=== PATIENT | female | born 1990 | race Caucasian/White ===

== ENCOUNTER 2016-06-03 08:59 | Emergency (ER) | payer BC ==
--- NOTE | 2016-06-03 09:18 | UC ---
Skin Complaint HPI - HPI Summary HPI Summary: PT HAD A TATOO DONE ON HER RIGHT UPPER ARM ON 05/30/16. YESTERDAY INCREASED REDNESS, WARMTH AND SWELLING OF SURROUNDING TISSUE. DENIES FEVER. PT HAD BEEN USING A&D OINT TO TATOO. has been using aquaphor. no fevers or chills or streaks. no d/c. wanted to catch it early and thinks that she has. - History of Current Complaint Chief Complaint: UCSkin Time Seen by Provider: 06/03/16 09:01 Stated Complaint: ARM COMPLAINT Hx Last Menstrual Period: 05/16/16 - Allergy/Home Medications Allergies/Adverse Reactions: Allergies Allergy/AdvReac Type Severity Reaction Status Date / Time Sulfa Antibiotics Allergy Unknown Unknown Verified 06/03/16 09:05 Reaction Details Home Medications: Home Medications Ibuprofen [Advil] 400 mg PO Q6H PRN 06/03/16 [History Confirmed 06/03/16] Oral Contraceptive 1 tab PO DAILY 06/03/16 [History] Skin Protectants, Misc. [A+D First Aid] 1 oin EX PRN 06/03/16 [History] Review of Systems Constitutional: Negative Skin: Rash Eyes: Negative ENT: Negative Respiratory: Negative Cardiovascular: Negative Gastrointestinal: Negative Genitourinary: Negative Motor: Negative Neurovascular: Negative Musculoskeletal: Negative Neurological: Negative Psychological: Negative All Other Systems Reviewed And Are Negative: Yes PMH/Surg Hx/FS Hx/Imm Hx Previously Healthy: Yes - Surgical History Surgical History: None - Family History Known Family History: Negative: Cardiac Disease, Diabetes - Social History Alcohol Use: Occasionally Substance Use Type: None Smoking Status (MU): Never Smoked Tobacco Physical Exam Triage Information Reviewed: Yes Appearance: Well-Appearing, No Pain Distress, Well-Nourished Vital Signs: Initial Vital Signs Temp 98.2 F 06/03/16 09:07 Pulse 82 06/03/16 09:07 Resp 18 06/03/16 09:07 BP 108/62 06/03/16 09:07 Pulse Ox 100 06/03/16 09:07 Eye Exam: Normal ENT Exam: Normal Dental Exam: Normal Neck exam: Normal Respiratory Exam: Normal Respiratory: Positive: Lungs clear, Normal breath sounds Cardiovascular Exam: Normal Cardiovascular: Positive: RRR, No Murmur, Pulses Normal, Brisk Capillary Refill Abdominal Exam: Normal Abdomen Description: Positive: Nontender, Soft Musculoskeletal Exam: Normal Neurological Exam: Normal Psychological Exam: Normal Skin: Positive: rashes - right upper arm that is slightly warm to touch with light pink blanching erythema surrounding newest tattoo of a bear. no streaks, no discharge. 6" x 4" Course/Dx - Differential Diagnoses - Skin Complaint Differential Diagnoses: Abscess, Cellulitis, Contact Dermatitis - Diagnoses Provider Diagnoses: cellulitis, mild Discharge - Discharge Plan Condition: Stable Disposition: HOME Prescriptions: Cephalexin CAP* [Keflex CAP*] 500 mg PO TID #30 cap Patient Education Materials: Cellulitis (ED) Referrals: Mica Pollock [Primary Care Provider] - 2 Days Additional Instructions: continue with aquaphor. take a proibiotic while on an antibiotic.
[2016-06-03 09:23] VITALS: BP 108/62
== END 2016-06-03 09:40 | disposition home or self-care (01) ==
LOC: UCCORT 08:59
DX: L03.113 Cellulitis of right upper limb (principal); Z88.2 Allergy status to sulfonamides
CPT/HCPCS: 99202; G0463